=== PATIENT | female | born 1965 | race African-American/Black ===

== ENCOUNTER 2017-01-22 16:33 | Emergency (ER) | payer OTHER ==
[2017-01-22 16:38] VITALS: BP 176/97; PULSE 67; TEMP 98; BMI 31.4
[2017-01-22] MEDS ORDERED: KETOROLAC TROMETHAMINE 60 MG/2 ML VIAL IM ONE (17:20)
[2017-01-22] MEDS ORDERED: KETOROLAC TROMETHAMINE 60 MG/2 ML VIAL ONE (17:26)
--- NOTE | 2017-01-22 17:34 | PDOC ---
History of Present Illness - General Chief Complaint: Pain Stated Complaint: SWOLLEN LT KNEE/EMPLOYEE Time Seen by Provider: 01/22/17 17:11 History Source: Patient Exam Limitations: No Limitations - History of Present Illness Initial Comments: 01/22/17 17:29 CHIEF COMPLAINT: Left knee pain HISTORY OF PRESENT ILLNESS: Patient is a 52-year-old female who presents for evaluation of chronic left knee pain. Patient reports in May 2016 she sustained an injury to the same was seen by her PMD MRI was performed patient was given a physical therapy, within the last 24 hours noted to have increased pain and swelling to knee. Denies any new injury, able to ambulate with a limp. REVIEW OF SYSTEMS: GENERAL: Afebrile, A&O x3 RESPIRATORY: No cough, wheezing, or hemoptysis. CARDIAC: No CP or SOB MUSCULOSKELETAL: Pain to [left] [anterior] knee SKIN : No erythema, no edema, no bruising, no deformity. NEUROLOGICAL: Denies any numbness or tingling. PHYSICAL EXAM: GENERAL: The patient is awake, alert, and fully oriented, in no acute distress. HEAD: Normal with no signs of trauma. RESPIRATORY: Lungs clear bilaterally no rhonchi, rales, or wheezes CARDIAC: S1-S2 audible, no murmur rub or gallop EXTREMITIES: Decreased range of motion to [right] knee related to pain, + swelling to the left lateral knee, [no] fluid appreciated, no bulge sign. No pain to superior or inferior patella. Negative drop test. Negative posterior leg test. No joint laxity noted, no ecchymosis, no deformity, no abrasions ,no edema. +3 popliteal pulse. Negative Homans sign. No calf pain or tenderness, no erythema or edema. MUSCULOSKELETAL: No spinal point tenderness. SKIN: Warm, Dry, normal turgor, no erythema, + edema no bruising. 01/22/17 17:37 Past History - Past Medical History Allergies/Adverse Reactions: Allergies Allergy/AdvReac Type Severity Reaction Status Date / Time No Known Drug Allergies Allergy Verified 01/22/17 16:39 Home Medications: Ambulatory Orders Multivitamin [Multivitamins] 1 each PO DAILY 08/15/13 Telmisartan/Hydrochlorothiazid [Micardis Hct 40-12.5 mg Tablet] 1 each PO DAILY 08/15/13 Montelukast Na [Singulair -] 10 mg PO HS 03/15/15 Tiotropium [place] [Spiriva] 1 inh PO BID 03/15/15 Amlodipine Besylate [Norvasc -] 10 mg PO DAILY 05/14/16 Naproxen [Naprosyn -] 500 mg PO BID #20 tablet 05/14/16 Ibuprofen [Motrin -] 600 mg PO QID #28 tablet 01/22/17 Asthma: Yes COPD: Yes GI Disorders: No HTN: Yes Other medical history: ARTHRITIS - Psycho/Social/Smoking Cessation Hx Anxiety: No Suicidal Ideation: No Smoking History: Former smoker Have you smoked in the past 12 months: No Information on smoking cessation initiated: No Hx Alcohol Use: No Drug/Substance Use Hx: No Substance Use Type: None *Physical Exam - Vital Signs Last Vital Signs Temp Pulse Resp BP Pulse Ox 98 F 67 18 176/97 100 01/22/17 16:34 01/22/17 16:34 01/22/17 16:34 01/22/17 16:34 01/22/17 16:34 Medical Decision Making - Medical Decision Making 01/22/17 17:34 A/P : Patient with chronic pain to the left knee. Increased in the last 24 hours. Patient states that she cannot go to work with the increased pain. There was no new acute injury. We will give toradol 60 mg IM x 1 in the ER. KNee immobilizer Follow up in the office of Dr. Bartholomew for evaluation. I discussed the physical exam findings, ancillary test results and final diagnoses with the patient. I answered all of the patient's questions. The patient was satisfied with the care received and felt comfortable with the discharge plan and treatment plan. The patient will call to arrange follow-up and will return to the Emergency Department with any new, persistent or worsening symptoms. 01/22/17 17:37 *DC/Admit/Observation/Transfer Diagnosis at time of Disposition: Knee pain Qualifiers: Chronicity: chronic Laterality: left Qualified Code(s): M25.562 - Pain in left knee; G89.29 - Other chronic pain - Discharge Dispostion Disposition: HOME Condition at time of disposition: Good Admit: No - Prescriptions Prescriptions: Ibuprofen [Motrin -] 600 mg PO QID #28 tablet - Referrals Referrals: Saran Childers MD [Primary Care Provider] - Louis Bartholomew MD [Staff Physician] - - Patient Instructions Additional Instructions: 1. Please return to the emergency department with any redness, swelling, increased pain, or any other concerns. 2. Keep splint on. 3. Please follow up in the office of Dr. Bartholomew within a week if pain persists. 4. No weightbearing 5. Ice and elevate when at rest. 6. Motrin for pain - Post Discharge Activity Work/School Note: Back to Work
== END 2017-01-22 17:58 | disposition home or self-care (01) ==
LOC: JERFT 16:33
PROC: 3E0233Z Introduction of Anti-inflammatory into Muscle, Percutaneous Approach (ICD-10-PCS; principal; 2017-01-22)
DX: M25.562 Pain in left knee (principal); G89.29 Other chronic pain; I10 Essential (primary) hypertension; J44.9 Chronic obstructive pulmonary disease, unspecified; J45.909 Unspecified asthma, uncomplicated; M12.9 Arthropathy, unspecified; Z87.891 Personal history of nicotine dependence
CPT/HCPCS: 99281-25

== ENCOUNTER 2017-05-04 07:01 | Day surgery (SDC) | payer OTHER ==
[2017-05-03 11:39] VITALS: BMI 31.4
[2017-05-04] MEDS ORDERED: LIDOCAINE 1%/EPI 1:100000 (20 ML MULTI DOSE VIAL) ONE (07:22)
[2017-05-04] MEDS ORDERED: BUPIVACAINE HCL/PF 0.5% (5MG/ML) 10 ML VIAL ONE (07:22)
[2017-05-04] MEDS ORDERED: ONDANSETRON 4 MG/2 ML VIAL IVPUSH PRN (08:51)
[2017-05-04] MEDS ORDERED: PROMETHAZINE HCL 25 MG/1 ML VIAL IVPUSH PRN (08:51)
[2017-05-04] MEDS ORDERED: oxyCODONE HCL 5 MG TABLET PO PRN (08:51)
--- NOTE | 2017-05-04 08:56 | HP ---
[facility] - Chief Complaint Chief Complaint: left knee pain History Source: Patient - Past Medical History Allergies/Adverse Reactions: Allergies Allergy/AdvReac Type Severity Reaction Status Date / Time No Known Drug Allergies Allergy Verified 05/03/17 11:45 ...LMP: 12/04/14 - Current Medications Current Medications: Home Medications Medication Instructions Recorded Multivitamin [Multivitamins] 1 each PO DAILY 08/15/13 Telmisartan/Hydrochlorothiazid 1 each PO DAILY 08/15/13 [Micardis Hct 40-12.5 mg Tablet] Montelukast Na [Singulair -] 10 mg PO HS 03/15/15 Tiotropium [place] [Spiriva] 1 inh PO BID 03/15/15 Amlodipine Besylate [Norvasc -] 10 mg PO DAILY 05/14/16 Ibuprofen [Motrin -] 600 mg PO QID #28 tablet 01/22/17 Satellite Physical Exam - Physical Examination Vital Signs: Vital Signs Period Temp Pulse Resp BP Sys/Cid Pulse Ox Last 24 Hr 97.7 F-97.7 F 85-85 20-20 128-128/81-81 Extremities: Other (+ joint line tenderness) [facility]ellite Impression/Plan - Impression/Plan Impression: internal derangement left knee Operative Procedure: arthroscopy left knee Date to be Performed: 05/04/17
[2017-05-04] MEDS ORDERED: LACTATED RINGERS SOLUTION 1,000 ML IV SCH (09:00)
[2017-05-04] MEDS ORDERED: SCOPOLAMINE HYDROBROMIDE 1 PATCH PATCH.TD72 ONE (09:05)
[2017-05-04] MEDS ORDERED: MIDAZOLAM HCL 2 MG/2 ML SINGLE DOSE VIAL ONE (09:06)
[2017-05-04] MEDS ORDERED: LIDOCAINE HCL/PF 2% SDV 5ML VIAL ONE (09:11)
[2017-05-04] MEDS ORDERED: PROPOFOL 20 ML ONE (09:11)
[2017-05-04] MEDS ORDERED: DEXAMETHASONE SOD PHOSPHATE 4 MG/1 ML VIAL ONE (09:20)
[2017-05-04] MEDS ORDERED: BUPIVACAINE HCL/PF 0.5% (5MG/ML) 10 ML VIAL IJ ONE (09:22)
[2017-05-04] MEDS ORDERED: LIDOCAINE 1%/EPI 1:100000 (20 ML MULTI DOSE VIAL) IJ ONE (09:22)
--- NOTE | 2017-05-04 09:32 | OP ---
Operative Note - Note: Operative Date: 05/04/17 Pre-Operative Diagnosis: left knee internal derangement Operation: left knee arthroscopy with PMM Post-Operative Diagnosis: Same as Pre-op Surgeon: Marcos Reyes Anesthesiologist/COLLEGE RECRUITER: Zay Hess Anesthesia: General, Local Specimens Removed: shavings Estimated Blood Loss (mls): 5 Operative Report Dictated: Yes
[2017-05-04] MEDS ORDERED: ACETAMINOPHEN INJECTION 100 ML IVPB ONE (09:35)
--- NOTE | 2017-05-04 09:56 | SPEC ---
DATE OF OPERATION: 05/04/2017 PREOPERATIVE DIAGNOSIS: Left medial meniscus tear. POSTOPERATIVE DIAGNOSIS: Left medial meniscus tear. PROCEDURE: Arthroscopy of the left knee, partial medial meniscectomy. SURGICAL ATTENDING: Marcos Reyes MD PLIER WORKER: No assistant men's soccer coach. ANESTHESIA: General with LMA. CLOSURE: 4-0 nylon. COMPLICATIONS: None. CONDITION: To recovery room in stable condition. DESCRIPTION OF OPERATIVE PROCEDURE: Patient was taken to the operating room on May 04, 2017. General anesthesia with LMA was administered by the anesthesiologist. The left lower extremity was prepped and draped in the usual sterile fashion. The medial and lateral infrapatellar portal sites were infiltrated with 1% Xylocaine with epinephrine. Both portals were then made with a 15 blade followed by a blunt trocar. The scope was placed in the lateral infrapatellar portal and up into the suprapatellar pouch. The knee was inflated with a cocktail of 10 mL of 1% Xylocaine, 10 mL of 0.5% Marcaine, and 20 mL of arthroscopic saline. This was allowed to sit in the knee for a few minutes to allow the anesthetic to work intraarticularly. The scope was placed in the lateral infrapatellar portal and up into the suprapatellar pouch. The pouch was visualized to be clean. The medial and lateral gutters were visualized to be clean. The undersurface of the patella and trochlea were visualized to be intact. With valgus stress on the knee, the medial compartment was entered. The medial meniscus was visualized, probed, and found to have a complex tear of the posterior horn. This was debrided back to smooth stable meniscal tissue using a meniscal biter and arthroscopic shaver. The medial femoral condyle was run and found to be intact as well as the medial tibial plateau. At 90 degrees, the ACL was visualized, probed, and found to be intact. In the figure 4 position, the lateral compartment was entered. The lateral meniscus was visualized, probed, and found to be intact. The lateral femoral condyle was run and found to be intact as was the lateral tibial plateau. The knee was irrigated with copious amounts of irrigation and then the fluid was drained. The inferomedial portal was closed then with 4-0 nylon. Prior to pulling the trocar from the lateral infrapatellar portal, 20 mL of 0.5% Marcaine was infused into the knee for postoperative analgesia. The trocar was then pulled and the incision was closed with 4-0 nylon suture. A sterile pressure dressing was applied. Patient awakened from anesthesia and transferred to recovery in stable condition. No complication. Estimated blood loss negligible. Eric [id number]
[2017-05-04 10:39] VITALS: TEMP 98
[2017-05-04] MEDS ORDERED: oxyCODONE HCL 5 MG TABLET ONE (11:01)
[2017-05-04 12:19] VITALS: BP 133/88; PULSE 70
--- NOTE | 2017-05-06 10:01 | PATH ---
Surgical Pathology Report Patient Name: DENY HDEZ [facility]. Rec. #: [id number] /Age/Gender: 1965 (Age: 52) / F Account: [id number] Location: [facility] SURGICAL Taken: 05/04/2017 Received: 05/04/2017 Reported: 05/06/2017 Physicians: Marcos Reyes M.D. Specimen(s) Received LEFT KNEE SHAVINGS Clinical History None given Final Diagnosis KNEE, LEFT, ARTHROSCOPIC SHAVING: FIBROCARTILAGE WITH MYXOID DEGENERATIVE CHANGES, ALONG WITH PORTIONS OF SYNOVIUM AND HYALINE CARTILAGE. Electronically Signed Pan Jimenez M.D. Gross Description Received fresh, labeled "left knee shavings," is a 3.2 x 3.0 x 0.2 cm. aggregate of ledesma-yellow soft tissue fragments. A sales representative gas service portion is submitted in one cassette. /05/04/201705/04/2017
== END 2017-05-04 11:50 | disposition home or self-care (01) ==
LOC: JASU-SURG 07:01
PROVIDERS: ATTEND Orthopaedic Surgery
PROC: 0SBD4ZZ Excision of Left Knee Joint, Percutaneous Endoscopic Approach (ICD-10-PCS; principal; 2017-05-04 08:45)
DX: S83.242A Other tear of medial meniscus, current injury, left knee, initial encounter (principal); X58.XXXA Exposure to other specified factors, initial encounter; Y93.9 Activity, unspecified; Y92.9 Unspecified place or not applicable; Y99.9 Unspecified external cause status
CPT/HCPCS: 88304-TC; 94760

== ENCOUNTER 2018-02-19 14:14 | Emergency (ER) | payer OTHER ==
[2018-02-19 14:24] VITALS: BP 160/75; PULSE 92; TEMP 98.2; BMI 30.5
[2018-02-19] MEDS ORDERED: KETOROLAC TROMETHAMINE 60 MG/2 ML VIAL IM ONE (14:37)
[2018-02-19] MEDS ORDERED: diazePAM 5 MG TABLET PO ONE (14:37)
--- NOTE | 2018-02-19 14:44 | PDOC ---
History of Present Illness - General Chief Complaint: Back Pain Stated Complaint: BACK PAIN Time Seen by Provider: 02/19/18 14:32 History Source: Patient Exam Limitations: No Limitations - History of Present Illness Initial Comments: 02/19/18 14:37 53 yr female with chronic low back pain states two days right lower back pain to buttock , unable to stand up straight. took ibuprofen last night 8pm none today. no abd pain neg urinary or bowel complaints. Severity: reports: moderate Pain Location: reports: back Method of Injury: Yes: unknown Past History - Past Medical History Allergies/Adverse Reactions: Allergies Allergy/AdvReac Type Severity Reaction Status Date / Time No Known Drug Allergies Allergy Verified 02/19/18 14:23 Home Medications: Ambulatory Orders Multivitamin [Multivitamins] 1 each PO DAILY 08/15/13 Telmisartan/Hydrochlorothiazid [Micardis Hct 40-12.5 mg Tablet] 1 each PO DAILY 08/15/13 Montelukast Na [Singulair -] 10 mg PO HS 03/15/15 Tiotropium [place] [Spiriva] 1 inh PO BID 03/15/15 Amlodipine Besylate [Norvasc -] 10 mg PO DAILY 05/14/16 Ibuprofen [Motrin -] 600 mg PO QID #28 tablet 01/22/17 Oxycodone HCl/Acetaminophen [Percocet 5-325 mg Tablet -] 1 - 2 tab PO Q6H #30 tab MDD 8 05/04/17 Diazepam [Valium] 5 mg PO Q8H PRN #21 tablet MDD 15mg 02/19/18 Ketorolac Tromethamine [Toradol] 10 mg PO TID #21 tablet 02/19/18 Anemia: No Asthma: Yes Cancer: No Cardiac Disorders: No CVA: No COPD: Yes CHF: No Dementia: No Diabetes: No GI Disorders: No Disorders: No HTN: Yes Hypercholesterolemia: Yes Liver Disease: No Seizures: No Thyroid Disease: No - Surgical History Orthopedic Surgery: Yes (LEFT HIP ARTHROSCOPY, CARPAL TUNNEL WHIT) - Suicide/Smoking/Psychosocial Hx Smoking History: Never smoked Have you smoked in the past 12 months: No If you are a former smoker, when did you quit?: 9YRS Information on smoking cessation initiated: No Hx Alcohol Use: No Drug/Substance Use Hx: No Substance Use Type: None Hx Substance Use Treatment: No *Physical Exam - Vital Signs Last Vital Signs Temp Pulse Resp BP Pulse Ox 98.2 F 92 H 18 160/75 99 02/19/18 14:21 02/19/18 14:21 02/19/18 14:21 02/19/18 14:21 02/19/18 14:21 - Physical Exam General Appearance: Yes: Nourished, Appropriately Dressed HEENT: positive: EOMI, CORAL Neck: positive: Supple Respiratory/Chest: positive: Lungs Clear, Normal Breath Sounds. negative: Chest Tender Cardiovascular: positive: Regular Rhythm, Regular Rate Musculoskeletal: positive: Normal Inspection, Decreased Range of Motion, Muscle Spasm. negative: CVA Tenderness, CVA Tenderness (R), CVA Tenderness (L), Vertebral Tenderness Extremity: positive: Normal Capillary Refill, Normal Inspection, Normal Range of Motion. negative: Tender Integumentary: positive: Normal Color, Dry, Warm Neurologic: positive: welfare supervisor II-XII NML intact, Fully Oriented, Alert, Normal Mood/ Affect Medical Decision Making - Medical Decision Making 02/19/18 14:39 cc: acute on chronic low back pain radiates to right buttock no abd pain neg fever chills, worse with movement, coughing, unable to turn to the right side due to pain will give toradol and valium now 02/19/18 14:58 pt ambulating steady gait dc home with her friend who is driving. *DC/Admit/Observation/Transfer Diagnosis at time of Disposition: Low back pain Qualifiers: Chronicity: acute Back pain laterality: right Sciatica presence: with sciatica Sciatica laterality: sciatica of right side Qualified Code(s): M54.41 - Lumbago with sciatica, right side - Prescriptions Prescriptions: Diazepam [Valium] 5 mg PO Q8H PRN #21 tablet MDD 15mg PRN Reason: Muscle Spasms Ketorolac Tromethamine [Toradol] 10 mg PO TID #21 tablet - Referrals Referrals: Saran Childers MD [Primary Care Provider] - - Patient Instructions Additional Instructions: apply ice for 20 minutes then apply heating pad, do this every 4hrs take the medication as prescribed, avoid heavy lifting or bending follow with your doctor in 1-2 days if not improving return to ER for any worsening symptoms - Post Discharge Activity Forms/Work/School Notes: Back to Work
[2018-02-19] MEDS ORDERED: diazePAM 5 MG TABLET ONE (14:45)
[2018-02-19] MEDS ORDERED: KETOROLAC TROMETHAMINE 60 MG/2 ML VIAL ONE (14:45)
== END 2018-02-19 15:02 | disposition home or self-care (01) ==
LOC: JERFT 14:14
PROC: 3E0233Z Introduction of Anti-inflammatory into Muscle, Percutaneous Approach (ICD-10-PCS; principal; 2018-02-19)
DX: G89.29 Other chronic pain (principal); M54.41 Lumbago with sciatica, right side; J45.909 Unspecified asthma, uncomplicated; J44.9 Chronic obstructive pulmonary disease, unspecified; I10 Essential (primary) hypertension; E78.00 Pure hypercholesterolemia, unspecified
CPT/HCPCS: 99281-25

== ENCOUNTER 2018-07-04 08:32 | Inpatient (IN) | payer OTHER ==
[2018-07-03 11:05] VITALS: BMI 31.1
[2018-07-04] MEDS ORDERED: GENTAMICIN SO4 80 MG/2 ML VIAL ONE (10:04)
[2018-07-04] MEDS ORDERED: LIDOCAINE 1%-EPI 1:100,000 30 ML MDV IJ ONE (10:04)
[2018-07-04] MEDS ORDERED: ONDANSETRON 4 MG/2 ML VIAL IVPUSH PRN ×2 (10:05→13:08)
[2018-07-04] MEDS ORDERED: THROMBIN (BOVINE) 20,000 UNIT VIAL TP ONE (10:05)
[2018-07-04] MEDS ORDERED: DEXAMETHASONE SOD PHOSPHATE 4 MG/1 ML VIAL IVPUSH PRN (10:05)
[2018-07-04] MEDS ORDERED: PROMETHAZINE HCL 25 MG/1 ML VIAL IVPB PRN (10:05)
[2018-07-04] MEDS ORDERED: LACTATED RINGERS SOLUTION 1,000 ML IV SCH (10:15)
[2018-07-04] MEDS ORDERED: MIDAZOLAM HCL 2 MG/2 ML SINGLE DOSE VIAL ONE (10:24)
[2018-07-04] MEDS ORDERED: PROPOFOL 20 ML ONE ×2 (10:24→12:20)
[2018-07-04] MEDS ORDERED: ROCURONIUM BROMIDE 50 MG/5 ML VIAL ONE (10:24)
[2018-07-04] MEDS ORDERED: LIDOCAINE HCL/PF 2% SDV 5ML VIAL ONE (10:26)
[2018-07-04] MEDS ORDERED: ceFAZolin SODIUM 1 GM VIAL ONE (10:47)
[2018-07-04] MEDS ORDERED: SODIUM CHLORIDE 0.9% P/F 10 ML VIAL IJ ONE ×2 (10:47→10:49)
[2018-07-04] MEDS ORDERED: ceFAZolin SODIUM 1 GM VIAL IVPB ONE ×2 (10:49)
[2018-07-04] MEDS ORDERED: VANCOMYCIN 1,000 MG VIAL (RESTRICTED TO ID ONLY) ONE (10:49)
[2018-07-04] MEDS ORDERED: LIDOCAINE 1%/EPI 1:100000 (20 ML MULTI DOSE VIAL) IJ ONE (10:50)
[2018-07-04] MEDS ORDERED: VANCOMYCIN 1 GM in D5W (PRE-DOCKED) 1,000 MG/250 ML IVPB ONE (10:51)
[2018-07-04] MEDS ORDERED: DESFLURANE GAS 240 ML BOTTLE IH ONE (10:56)
[2018-07-04] MEDS ORDERED: HYDROGEN PEROXIDE 473 ML PO ONE (11:08)
[2018-07-04] MEDS ORDERED: BACITRACIN 50,000 UNITS VIAL TP ONE (11:13)
[2018-07-04] MEDS ORDERED: GENTAMICIN 80MG PREMIX BAG IVPB ONE (11:13)
[2018-07-04] MEDS ORDERED: THROMBIN (BOVINE) 5,000 UNIT VIAL TP ONE ×3 (11:14→12:03)
[2018-07-04] MEDS ORDERED: ACETAMINOPHEN INJECTION 100 ML IVPB ONE (11:17)
[2018-07-04] MEDS ORDERED: GELATIN, ABSORBABLE 12-7MM EACH SPONGE TP ONE ×2 (11:48)
[2018-07-04] MEDS ORDERED: NEOSTIGMINE METHYLSULFATE 0.5 MG/1 ML - 10 ML MDV ONE (12:39)
[2018-07-04] MEDS ORDERED: diphenhydrAMINE HCL 25 MG CAPSULE (FP) PO PRN (13:08)
[2018-07-04] MEDS ORDERED: oxyCODONE HCL 5 MG TABLET PO PRN ×2 (13:08)
[2018-07-04] MEDS ORDERED: diazePAM 5 MG TABLET PO PRN (13:12)
[2018-07-04 13:22] LABS: HEMATOCRIT 25.2 % (32.4-45.2); HEMOGLOBIN 8.4 GM/dL (10.7-15.3); MCH 28.2 pg (25.7-33.7); MCHC 33.4 g/dl (32.0-36.0); MEAN CELL VOLUME 84.3 fl (80-96); MEAN PLT VOLUME 7.8 fl (7.5-11.1); PLATELET COUNT 265 K/MM3 (134-434); RBC 2.99 M/mm3 (3.60-5.2); RDW 14.3 % (11.6-15.6)
[2018-07-04] MEDS ORDERED: HYDROmorphone *PCA* 10MG/50ML DISP.SYRIN PCA ONE (14:09)
[2018-07-04] MEDS: DOCUSATE SODIUM 100 MG CAPSULE (FP) PO SCH ×2 (18:01→22:00)
[2018-07-04] MEDS: LACTATED RINGERS SOLUTION 1,000 ML/1,000 ML INFUS.BAG IV SCH (18:02)
[2018-07-04] MEDS: HYDROmorphone *PCA* 10MG/50ML DISP.SYRIN PCA SCH (18:02)
[2018-07-04] MEDS: CEFAZOLIN 1 GM/D5W 1 GM/50 ML BAG IVPB SCH (18:03)
--- NOTE | 2018-07-04 19:16 | HP ---
Admitting History and Physical - Admission History of Present Illness: Pt is a 53 y/o female w/ PMH significant for HTN, HLD, OA and disc herniations. Pt underwent cervical lamnectomy today. Pt is wear cervical collar and tolderated procedure and is on YOUTH CARE SPECIALIST pump. - Past Medical History Cardiovascular: Yes: HTN, Hyperlipdemia ...LMP: 12/04/14 ...: No - Past Surgical History Additional Past Surgical History: Carpel tunnel surgery B/L Lt hip surgery and LT knee arthroscopy - Smoking History Smoking history: Never smoked Have you smoked in the past 12 months: No If you are a former smoker, when did you quit?: 10 YEArs - Alcohol/Substance Use Hx Alcohol Use: No Home Medications - Allergies Allergies/Adverse Reactions: Allergies Allergy/AdvReac Type Severity Reaction Status Date / Time No Known Drug Allergies Allergy Verified 07/04/18 09:40 - Home Medications Home Medications: Ambulatory Orders Multivitamin [Multivitamins] 1 each PO DAILY 08/15/13 Telmisartan/Hydrochlorothiazid [Micardis Hct 40-12.5 mg Tablet] 1 each PO DAILY 08/15/13 Montelukast Na [Singulair -] 10 mg PO HS 03/15/15 Tiotropium [place] [Spiriva] 1 inh PO BID 03/15/15 Amlodipine Besylate [Norvasc -] 10 mg PO DAILY 05/14/16 Ibuprofen [Motrin -] 600 mg PO QID #28 tablet 01/22/17 Diazepam [Valium] 5 mg PO Q8H PRN #21 tablet MDD 15mg 02/19/18 Family Disease History - Family Disease History Family History: Unremarkable Review of Systems - Review of Systems Constitutional: reports: No Symptoms Eyes: reports: No Symptoms HENT: reports: No Symptoms Cardiovascular: reports: No Symptoms Respiratory: reports: No Symptoms Gastrointestinal: reports: No Symptoms Genitourinary: reports: No Symptoms Physical Examination Vital Signs: Vital Signs Temperature 97.5 F L 07/04/18 16:15 Pulse Rate 58 L 07/04/18 16:15 Respiratory Rate 18 07/04/18 16:15 Blood Pressure 85/51 L 07/04/18 16:15 O2 Sat by Pulse Oximetry (%) 98 07/04/18 16:00 Constitutional: Yes: No Distress HENT: Yes: Other ((+) cerical collar and draining tube from c-spine) Cardiovascular: Yes: WNL, Regular Rate and Rhythm Respiratory: Yes: WNL, Regular, CTA Bilaterally Gastrointestinal: Yes: WNL, Normal Bowel Sounds, Soft Musculoskeletal: Yes: WNL Extremities: Yes: WNL Edema: No Neurological: Yes: WNL, Alert, Oriented Labs: CBC, BMP 07/04/18 13:00 Problem List - Problems (1) Cervical spine instability Assessment/Plan: S/P cervical lamnectomy Cont C-collar Cont YOUTH CARE SPECIALIST As per NSG Diet to be advanced as tolerated Code(s): M53.2X2 - SPINAL INSTABILITIES, CERVICAL REGION (2) HTN (hypertension) Assessment/Plan: BP slightly hypotensive Cont IVF Cont to monitor Restart antihypertensives as BP tolerates Check labs in am Code(s): I10 - ESSENTIAL (PRIMARY) HYPERTENSION (3) HLD (hyperlipidemia) Code(s): E78.5 - HYPERLIPIDEMIA, UNSPECIFIED
[2018-07-04] MEDS: MONTELUKAST NA 10 MG TABLET PO SCH (21:25)
[2018-07-05] MEDS: CEFAZOLIN 1 GM/D5W 1 GM/50 ML BAG IVPB SCH ×2 (02:02→10:15)
[2018-07-05] MEDS: LACTATED RINGERS SOLUTION 1,000 ML/1,000 ML INFUS.BAG IV SCH ×2 (02:02→13:51)
[2018-07-05] MEDS: DOCUSATE SODIUM 100 MG CAPSULE (FP) PO SCH ×3 (06:56→23:08)
[2018-07-05 07:16] LABS: HEMATOCRIT 23.8 % (32.4-45.2); MCH 28.2 pg (25.7-33.7); MCHC 33.6 g/dl (32.0-36.0); MEAN CELL VOLUME 83.8 fl (80-96); MEAN PLT VOLUME 8.1 fl (7.5-11.1); PLATELET COUNT 243 K/MM3 (134-434); RBC 2.84 M/mm3 (3.60-5.2); RDW 14.4 % (11.6-15.6); WHITE BLOOD COUNT 11.4 K/mm3 (4.0-10.0)
[2018-07-05 07:48] LABS: ANION GAP 9 MMOL/L (8-16); BLOOD UREA NITROGEN 20 mg/dL (7-18); CALCIUM 8.4 mg/dL (8.5-10.1); CHLORIDE 104 mmol/L (98-107); CO2 26 mmol/L (21-32); CREATININE 0.9 mg/dL (0.55-1.3); GLUCOSE,RANDOM 136 mg/dL (74-106); POTASSIUM 3.9 mmol/L (3.5-5.1); SODIUM 138 mmol/L (136-145)
--- NOTE | 2018-07-05 09:15 | PN ---
Progress Note (short form) - Note Progress Note: POD#1 Pt with slight nausea and occasional dizziness after using OPERATOR WEAPON LOCATING RADAR. Able to swallow liquids/ice chips overnight. OOB and ambulating to the bathroom and voiding freely. No CP/SOB. Vital Signs Period Temp Pulse Resp BP Sys/Cid Pulse Ox Last 24 Hr 97.5 F-99 F 53-100 12-20 80-143/44-78 97-100 RAFFI-20ml GEN: A&0x3, NAD CV: RRR Lungs: CTA b/l ABD: soft, non-distended, non-tender Neuro: shoulder shrung equal b/l. Client Strategist strength equal b/l. 5/5 dorsi/plantar flexion b/l LE:SCDs in place, no calf tenderness or swelling noted b/l CBC, BMP 07/05/18 06:00 07/05/ 06:00 A/P: 53 yo female s/p C5-C6 corpectomy, anterior cervical fusion Pt with nausea and dizziness with the OPERATOR WEAPON LOCATING RADAR. Will discontinue the OPERATOR WEAPON LOCATING RADAR and give IV tylenol. Also will given zofran for nausea. If nausea resolves continue diet as tolerated. IV morphine as needed and transition to oral pain medications once tolerating a diet. OOB and ambulate with PT DVT ppx with SCDs/ambulate D/w Dr. Moura
[2018-07-05] MEDS ORDERED: VALSARTAN 160 MG TABLET (UD) PO SCH (10:00)
[2018-07-05] MEDS ORDERED: amLODIPine BESYLATE 10 MG TABLET (FP) PO SCH (10:00)
[2018-07-05] MEDS ORDERED: HYDROCHLOROTHIAZIDE 12.5 MG CAPSULE (FP) PO SCH (10:00)
[2018-07-05] MEDS: FERROUS SO4 325 MG TABLET (FP) PO SCH (10:16)
[2018-07-05] MEDS: HYDROmorphone *PCA* 10MG/50ML DISP.SYRIN PCA SCH (10:16)
[2018-07-05] MEDS: ENOXAPARIN NA (PORCINE) 40 MG/0.4 ML DISP.SYRIN SQ SCH (10:16)
[2018-07-05] MEDS: FOLIC ACID 1 MG TABLET (FP) PO SCH (10:16)
[2018-07-05] MEDS ORDERED: PT OWN MED DRAWER 7, Y5N ONE ×2 (10:18→12:53)
[2018-07-05] MEDS ORDERED: oxyCODONE HCL 5 MG TABLET PO PRN (11:06)
[2018-07-05] MEDS ORDERED: MORPHINE SULFATE 2 MG/ML VIAL IVPUSH PRN (11:07)
[2018-07-05] MEDS: ACETAMINOPHEN 1000 MG/100 ML VIAL (NON FORMULARY) IVPB SCH ×3 (12:59→23:28)
[2018-07-05] MEDS: TIOTROPIUM BROMIDE 2.5 MCG (SPIRIVA) RESPIMAT INHALER IH SCH (13:51)
[2018-07-05] MEDS: oxyCODONE HCL 5 MG TABLET PO PRN (20:25)
[2018-07-05] MEDS: MONTELUKAST NA 10 MG TABLET PO SCH (23:08)
--- NOTE | 2018-07-05 23:29 | PN ---
Progress Note, Physician History of Present Illness: Pt tolerating diet - Current Medication List Current Medications: Active Medications Acetaminophen (Ofirmev Injection -) 1,000 mg IVPB Q6H [facility] Stop: 07/06/18 05:16 Last Admin: 07/05/18 18:33 Dose: 1,000 mg Dexamethasone Sodium Phosphate (Decadron Injection -) 4 mg IVPUSH ONCE PRN PRN Reason: NAUSEA AND/OR VOMITING Diazepam (Valium -) 5 mg PO Q8H PRN PRN Reason: MUSCLE SPASMS Last Admin: 07/05/18 23:08 Dose: 5 mg Diphenhydramine HCl (Benadryl Injection -) 12.5 mg IVPUSH ONCE PRN PRN Reason: FOR ITCHING Diphenhydramine HCl (Benadryl -) 25 mg PO Q6H PRN PRN Reason: FOR ITCHING Docusate Sodium (Colace -) 100 mg PO TID [facility] Last Admin: 07/05/18 23:08 Dose: 100 mg Enoxaparin Sodium (Lovenox -) 40 mg SQ DAILY [facility] Last Admin: 07/05/18 10:16 Dose: 40 mg Ferrous Sulfate (Feosol -) 325 mg PO DAILY [facility] Last Admin: 07/05/18 10:16 Dose: 325 mg Folic Acid (Folic Acid -) 1 mg PO DAILY [facility] Last Admin: 07/05/18 10:16 Dose: 1 mg Lactated Ringer's (Lactated Ringers Solution) 1,000 ml in 1,000 mls @ 125 mls/ hr IV ASDIR [facility] Last Admin: 07/05/18 13:51 Dose: Not Given Montelukast Sodium (Singulair -) 10 mg PO [facility] Last Admin: 07/05/18 23:08 Dose: 10 mg Morphine Sulfate (Morphine Sulfate) 2 mg IVPUSH Q3H PRN PRN Reason: PAIN LEVEL 7 - 10 Ondansetron HCl (Zofran Injection) 4 mg IVPUSH Q4H PRN PRN Reason: NAUSEA AND/OR VOMITING Last Admin: 07/04/18 21:24 Dose: 4 mg Ondansetron HCl (Zofran Injection) 4 mg IVPUSH Q6H PRN PRN Reason: NAUSEA Oxycodone HCl (Roxicodone -) 5 mg PO Q6H PRN PRN Reason: PAIN LEVEL 1-5 Oxycodone HCl (Roxicodone -) 10 mg PO Q6H PRN PRN Reason: PAIN LEVEL 6-10 Last Admin: 07/05/18 20:25 Dose: 10 mg Promethazine HCl (Phenergan Injection -) 12.5 mg IVPB Q6H PRN PRN Reason: NAUSEA AND/OR VOMITING Tiotropium [place] (Spiriva Respimat) 2 puff IH DAILY [facility] Last Admin: 07/05/18 13:51 Dose: 2 puff - Objective Vital Signs: Vital Signs Temperature 98 F 07/05/18 16:20 Pulse Rate 102 H 07/05/18 16:20 Respiratory Rate 20 07/05/18 16:20 Blood Pressure 124/59 L 07/05/18 16:20 O2 Sat by Pulse Oximetry (%) 98 07/04/18 21:00 Neck: Yes: Other ((+) cervical collar (+) drainage tube w/ sangrinous drainage minimal from c-spine) Cardiovascular: Yes: WNL, Tachycardia Respiratory: Yes: WNL, Regular, CTA Bilaterally Gastrointestinal: Yes: WNL, Normal Bowel Sounds, Soft Labs: CBC, BMP 07/05/18 06:00 07/05/18 06:00 Problem List - Problems (1) Cervical spine instability Assessment/Plan: S/P cervical lamnectomy Cont C-collar Pt now on oxycodone/valium/morphine PT eval as per NSG Code(s): M53.2X2 - SPINAL INSTABILITIES, CERVICAL REGION (2) Anemia Assessment/Plan: Check H/H in am May need blood transfusion Code(s): D64.9 - ANEMIA, UNSPECIFIED (3) HTN (hypertension) Assessment/Plan: BP normal range Will hold off on antihypertensives at this point Code(s): I10 - ESSENTIAL (PRIMARY) HYPERTENSION (4) HLD (hyperlipidemia) Code(s): E78.5 - HYPERLIPIDEMIA, UNSPECIFIED
[2018-07-06] MEDS: DOCUSATE SODIUM 100 MG CAPSULE (FP) PO SCH ×4 (06:28→21:07)
[2018-07-06] MEDS: ACETAMINOPHEN 1000 MG/100 ML VIAL (NON FORMULARY) IVPB SCH (06:29)
[2018-07-06] MEDS: oxyCODONE HCL 5 MG TABLET PO PRN (07:12)
[2018-07-06 07:47] LABS: BASO % 0.4 % (0-2.0); EOS % 1.8 % (0-4.5); HEMATOCRIT 20.9 % (32.4-45.2); HEMOGLOBIN 7.3 GM/dL (10.7-15.3); LYMPH % 28.4 % (8-40); MCH 29.3 pg (25.7-33.7); MEAN CELL VOLUME 83.9 fl (80-96); MEAN PLT VOLUME 7.9 fl (7.5-11.1); MONO % 7.6 % (3.8-10.2); NEUT % 61.8 % (42.8-82.8); PLATELET COUNT 223 K/MM3 (134-434); RDW 14.2 % (11.6-15.6); WHITE BLOOD COUNT 10.6 K/mm3 (4.0-10.0)
[2018-07-06] MEDS ORDERED: INSULIN (NOVOLOG) ASPART 100 UNITS/ML 10ML VIAL ONE (08:09)
[2018-07-06] MEDS ORDERED: INSULIN (LEVEMIR) 100 UNITS/ML UNITS SQ ONE (08:09)
--- NOTE | 2018-07-06 08:29 | PN ---
Progress Note (short form) - Note Progress Note: Patient stable and c/o pain score of 5-6/10.HONEYCOMB BLANKET MAKER was DC yesterday at the request of patient as she was c/o nausia.Patient on Po pain medication and her main pain is from her shoulder.No any anesthesia related problem. Patient Dc from the anesthesia care.
--- NOTE | 2018-07-06 09:03 | PN ---
Progress Note (short form) - Note Progress Note: POD#2, C5/6 Corpectomies/ACDF Pt seen and examined this AM. States she is feeling well. Pain is controlled with PO pain meds. Endorses some shoulder pain/muscle spasms. Requesting Flexeril. Has been oob with PT (ambulated 100 feet). Tolerating PO, voiding without issue. Denies cp/sob, n/v/d, calf pain/edema. Vital Signs Temp 98.6 F 07/06/18 09:00 Pulse 83 07/06/18 09:00 Resp 16 07/06/18 09:00 BP 113/60 07/06/18 09:00 Pulse Ox 98 07/04/18 21:00 Intake & Output 07/05/18 07/06/18 07/06/18 23:59 11:59 23:59 Intake Total 975 250 Output Total 35 600 Balance 940 -350 Intake: IV 775 LACTATED RINGERS SOLUTION 775 1,000 ml In 1,000 ml @ 125 mls/hr IV ASDIR K[facility]ODE Rx#:[id number] IVPB 200 Oral 250 Output: Drainage 35 Anterior Neck 35 Urine 350 Void 350 Emesis 250 Other: Voiding Method Toilet Bowel Movement No CBC, BMP 07/06/18 06:00 07/05/18 06:00 RAFFI-15ml over night, serosanguinous drainage GEN: A&0x3, NAD CV: RRR Lungs: CTA b/l ABD: soft, non-distended, non-tender Neuro: B/L UE claims service representative strength strong and equal, B/L biceps/triceps 5/5, b/l le dorsi/plantar flexion 5/5. SILT b/l UE/LE. LEs: no calf tenderness or swelling noted b/l A/P: 53 y/o F w/ PMHx htn, hld, oa, cervical spondylosis with instability, now POD 2, s/p C5-C6 corpectomy/ACDF Afebrile, tachy to low 100s (?anemia). H/H noted. Stable exam. RAFFI removed this morning without issue. Dressing reinforced -Will hold off on transfusion at this time (pt ambulating without dizziness) -Monitor VS -OOB and ambulate with PT -DVT ppx with Heparin 5000units sq tid, SCDs/ambulate -Pain control with PO pain meds, Flexeril ordered (pts home meds), warm packs ordered for shoulder discomfort -Cervical collar 23/24 hours per day -Regular diet -Cepacol ordered -Possible d/c tomorrow, pt to remain in house for monitoring due to acute blood loss anemia post op D/w Dr. Ayala
[2018-07-06] MEDS ORDERED: BENZOCAINE/MENTH/CETYLPYRD CL 1 EACH LOZENGE MM PRN (09:12)
[2018-07-06] MEDS: FOLIC ACID 1 MG TABLET (FP) PO SCH (09:15)
[2018-07-06] MEDS: FERROUS SO4 325 MG TABLET (FP) PO SCH (09:15)
[2018-07-06] MEDS: ENOXAPARIN NA (PORCINE) 40 MG/0.4 ML DISP.SYRIN SQ SCH (09:15)
[2018-07-06] MEDS: TIOTROPIUM BROMIDE 2.5 MCG (SPIRIVA) RESPIMAT INHALER IH SCH (09:59)
[2018-07-06] MEDS: CYCLOBENZAPRINE HCL 5 MG TABLET PO SCH ×3 (10:50→21:07)
[2018-07-06] MEDS: LACTATED RINGERS SOLUTION 1,000 ML/1,000 ML INFUS.BAG IV SCH (13:34)
--- NOTE | 2018-07-06 17:52 | PN ---
Progress Note, Physician History of Present Illness: Pt slightly tachycardiac - Current Medication List Current Medications: Active Medications Acetaminophen (Ofirmev Injection -) 1,000 mg IVPB Q6H PRN PRN Reason: PAIN LEVEL 1-5 Benzocaine/Menthol (Cepacol Lozenge -) 1 each MM PRN PRN PRN Reason: SORE THROAT Last Admin: 07/06/18 09:59 Dose: 1 each Cyclobenzaprine HCl (Cyclobenzaprine Hcl) 5 mg PO TID [facility] Last Admin: 07/06/18 13:34 Dose: 5 mg Dexamethasone Sodium Phosphate (Decadron Injection -) 4 mg IVPUSH ONCE PRN PRN Reason: NAUSEA AND/OR VOMITING Last Admin: 07/06/18 09:15 Dose: 4 mg Diphenhydramine HCl (Benadryl Injection -) 12.5 mg IVPUSH ONCE PRN PRN Reason: FOR ITCHING Diphenhydramine HCl (Benadryl -) 25 mg PO Q6H PRN PRN Reason: FOR ITCHING Docusate Sodium (Colace -) 100 mg PO TID [facility] Last Admin: 07/06/18 13:33 Dose: 100 mg Ferrous Sulfate (Feosol -) 325 mg PO DAILY [facility] Last Admin: 07/06/18 09:15 Dose: 325 mg Folic Acid (Folic Acid -) 1 mg PO DAILY [facility] Last Admin: 07/06/18 09:15 Dose: 1 mg Heparin Sodium (Porcine) (Heparin -) 5,000 unit SQ TID [facility] Montelukast Sodium (Singulair -) 10 mg PO HS [facility] Last Admin: 07/05/18 23:08 Dose: 10 mg Morphine Sulfate (Morphine Sulfate) 2 mg IVPUSH Q3H PRN PRN Reason: PAIN LEVEL 7 - 10 Ondansetron HCl (Zofran Injection) 4 mg IVPUSH Q4H PRN PRN Reason: NAUSEA AND/OR VOMITING Last Admin: 07/04/18 21:24 Dose: 4 mg Ondansetron HCl (Zofran Injection) 4 mg IVPUSH Q6H PRN PRN Reason: NAUSEA Oxycodone HCl (Roxicodone -) 5 mg PO Q6H PRN PRN Reason: PAIN LEVEL 1-5 Oxycodone HCl (Roxicodone -) 10 mg PO Q6H PRN PRN Reason: PAIN LEVEL 6-10 Last Admin: 07/06/18 07:12 Dose: 10 mg Promethazine HCl (Phenergan Injection -) 12.5 mg IVPB Q6H PRN PRN Reason: NAUSEA AND/OR VOMITING Tiotropium [place] (Spiriva Respimat) 2 puff IH DAILY [facility] Last Admin: 07/06/18 09:59 Dose: 2 puff - Objective Vital Signs: Vital Signs Temperature 97.9 F 07/06/18 16:25 Pulse Rate 115 H 07/06/18 16:25 Respiratory Rate 20 07/06/18 16:25 Blood Pressure 143/87 07/06/18 16:25 O2 Sat by Pulse Oximetry (%) 96 07/06/18 09:00 Neck: Yes: Other ((+) cervical collar) Cardiovascular: Yes: Tachycardia Respiratory: Yes: WNL, Regular, CTA Bilaterally Gastrointestinal: Yes: WNL, Normal Bowel Sounds, Soft Labs: CBC, BMP 07/06/18 06:00 07/05/18 06:00 Problem List - Problems (1) Cervical spine instability Assessment/Plan: S/P cervical lamnectomy Cont C-collar Pt now on oxycodone/valium PT eval as per NSG Code(s): M53.2X2 - SPINAL INSTABILITIES, CERVICAL REGION (2) Anemia Assessment/Plan: Check H/H in am Pt has a h/i Fe+ def anemia Cont FeSo4 Hold off on blood transfusion for now Code(s): D64.9 - ANEMIA, UNSPECIFIED (3) HTN (hypertension) Assessment/Plan: BP slightly increasing Slightly tachycardiac Will restart antihypertensivcevs Code(s): I10 - ESSENTIAL (PRIMARY) HYPERTENSION (4) HLD (hyperlipidemia) Code(s): E78.5 - HYPERLIPIDEMIA, UNSPECIFIED
[2018-07-06 18:53] LABS: BASO % 0.2 % (0-2.0); HEMATOCRIT 22.1 % (32.4-45.2); HEMOGLOBIN 7.5 GM/dL (10.7-15.3); MCH 28.8 pg (25.7-33.7); MCHC 34.1 g/dl (32.0-36.0); MEAN CELL VOLUME 84.4 fl (80-96); MEAN PLT VOLUME 8.4 fl (7.5-11.1); MONO % 3.6 % (3.8-10.2); NEUT % 87.2 % (42.8-82.8); PLATELET COUNT 237 K/MM3 (134-434); RBC 2.62 M/mm3 (3.60-5.2); RDW 14.4 % (11.6-15.6); WHITE BLOOD COUNT 11.7 K/mm3 (4.0-10.0)
[2018-07-06] MEDS: MONTELUKAST NA 10 MG TABLET PO SCH ×2 (20:23→21:08)
[2018-07-06] MEDS: ACETAMINOPHEN 1000 MG/100 ML VIAL (NON FORMULARY) IVPB PRN (21:56)
[2018-07-06] MEDS ORDERED: ALPRAZolam 0.25 MG TABLET PO ONE (23:45)
[2018-07-06] MEDS: HYDROCHLOROTHIAZIDE 12.5 MG CAPSULE (FP) PO SCH (23:56)
[2018-07-07] MEDS: ACETAMINOPHEN 1000 MG/100 ML VIAL (NON FORMULARY) IVPB PRN (06:07)
[2018-07-07] MEDS: DOCUSATE SODIUM 100 MG CAPSULE (FP) PO SCH ×2 (06:07→14:23)
[2018-07-07] MEDS: CYCLOBENZAPRINE HCL 5 MG TABLET PO SCH ×2 (06:07→14:23)
[2018-07-07] MEDS: HEPARIN NA (PORCINE) 5,000 UNITS/ML 1ML VIAL SQ SCH ×2 (06:07→14:24)
[2018-07-07 08:16] LABS: BASO % 0.3 % (0-2.0); EOS % 0.3 % (0-4.5); HEMATOCRIT 20.5 % (32.4-45.2); LYMPH % 25.5 % (8-40); MCH 28.9 pg (25.7-33.7); MCHC 34.3 g/dl (32.0-36.0); MEAN CELL VOLUME 84.3 fl (80-96); MEAN PLT VOLUME 8.3 fl (7.5-11.1); MONO % 7.1 % (3.8-10.2); NEUT % 66.8 % (42.8-82.8); PLATELET COUNT 226 K/MM3 (134-434); RBC 2.43 M/mm3 (3.60-5.2); RDW 13.8 % (11.6-15.6); WHITE BLOOD COUNT 10.3 K/mm3 (4.0-10.0)
[2018-07-07] MEDS ORDERED: PT OWN MED DRAWER 7, Y5N ONE (09:17)
[2018-07-07] MEDS: HYDROCHLOROTHIAZIDE 12.5 MG CAPSULE (FP) PO SCH (09:35)
[2018-07-07] MEDS: FOLIC ACID 1 MG TABLET (FP) PO SCH (09:35)
[2018-07-07] MEDS: FERROUS SO4 325 MG TABLET (FP) PO SCH (09:35)
[2018-07-07] MEDS: TIOTROPIUM BROMIDE 2.5 MCG (SPIRIVA) RESPIMAT INHALER IH SCH (09:36)
--- NOTE | 2018-07-07 09:38 | PN ---
Progress Note (short form) - Note Progress Note: POD#3, C5/6 Corpectomies/ACDF Pt seen and examined this AM. States she is feeling well. Pain is controlled with non-narcotics. Endorses continued shoulder pain/muscle spasms. Has been oob with PT. Tolerating PO, voiding without issue. Denies cp/sob, n/v/d, calf pain/edema. 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 SILT b/l UE/LE. LEs: no calf tenderness or swelling noted b/l A/P: 53 y/o F w/ PMHx htn, hld, oa, cervical spondylosis with instability, now POD 3, s/p C5-C6 corpectomy/ACDF Afebrile, tachy to low 110s. H/H trending down 7/20.5 today from 7.5/22.1 yesterday Stable exam. -2units pRBCs ordered, pt has active type and screen -Plan d/w patient who agrees -Orders placed, RN aware above d/w attending Dr Lewis
[2018-07-07] MEDS ORDERED: amLODIPine BESYLATE 5 MG TABLET (FP) PO SCH (10:00)
[2018-07-07 21:31] VITALS: BP 120/85; PULSE 100; TEMP 98.5
== END 2018-07-07 21:44 | disposition home or self-care (01) | DRG 472 ==
LOC: JSAMEDAYSX 08:32 → J8W 15:44
PROVIDERS: ADMIT Internal Medicine; ATTEND Internal Medicine
PROC: 0PB30ZZ Excision of Cervical Vertebra, Open Approach (ICD-10-PCS; 2018-07-04)
PROC: 00NW0ZZ Release Cervical Spinal Cord, Open Approach (ICD-10-PCS; 2018-07-04)
PROC: B01BZZZ Fluoroscopy of Spinal Cord (ICD-10-PCS; 2018-07-04)
PROC: 0RG20A0 Fusion of 2 or more Cervical Vertebral Joints with Interbody Fusion Device, Anterior Approach, Anterior Column, Open Approach (ICD-10-PCS; principal; 2018-07-04 10:00)
PROC: 30233N1 Transfusion of Nonautologous Red Blood Cells into Peripheral Vein, Percutaneous Approach (ICD-10-PCS; 2018-07-07)
DX: M47.12 Other spondylosis with myelopathy, cervical region (principal); M50.03 Cervical disc disorder with myelopathy, cervicothoracic region; M53.2X2 Spinal instabilities, cervical region; I10 Essential (primary) hypertension; E78.5 Hyperlipidemia, unspecified; R42 Dizziness and giddiness; R11.0 Nausea; D64.9 Anemia, unspecified; R00.0 Tachycardia, unspecified
CPT/HCPCS: 36415; 36430; 72125-TC; 76000-TC-FY; 80048; 85025; 85027; 86850; 86900; 86901; 86922; 94760; 97116-GP; 97161-GP; J0131; J1644; P9038; P9058